=== PATIENT | female | born 1980 | race American Indian/Alaskan Native ===

== ENCOUNTER 2017-04-30 16:39 | Emergency (ER) | payer MEDICAID ==
[2017-04-30] MEDS ORDERED: VISTARIL PO ONE (17:32)
[2017-04-30 17:40] LABS: Amphetamine Screen,Urine PRESUMPTIVE NEGATIVE; Bacteria,Urine 1+ /HPF (Negative); Benzodiazepines Screen,Urine PRESUMPTIVE NEGATIVE; Bilirubin,Urine NEG (Negative); Cocaine Screen,Urine PRESUMPTIVE NEGATIVE; Color,Urine Yellow (Yellow); Methadone Screen,Urine PRESUMPTIVE NEGATIVE; Mucus,Urine FEW /HPF; Nitrite,Urine NEG (Negative); Opiate Screen,Urine PRESUMPTIVE NEGATIVE; Urobilinogen,Urine < 2.0 mg/dL (<2.0)
[2017-04-30 17:46] LABS: Blood,Urine Small (Negative)
[2017-04-30 17:53] LABS: Cannabinoid Screen,Urine PRESUMPTIVE POSITIVE
--- NOTE | 2017-04-30 18:45 | Emergency Department Report ---
ED Psych HPI - General Chief Complaint: Psych Stated Complaint: SUICIDAL THOUGHTS Time Seen by Provider: 04/30/17 17:22 Source: patient, EMS Mode of arrival: Ambulatory - History of Present Illness Initial Comments: 36 yo female with a past medical history depression, anxiety, and fibromyalgia presents to the Hospital complaining of depression and suicidal thoughts for the past 3 days. Suicidal thoughts increased today secondary to life stressors. Patient also states she is having increased anxiety episodes. She is compliant with her Lexapro and other unknown psychiatric medication. Patient has a plan to hang herself. When asked if she hears voices she states "I don't know". Patient expresses she is tired of living but knows she needs to be around for her 14-year-old son no physical complaints reported. Patient requesting medication for anxiety and sleep. - Related Data Home Medications Medication Instructions Recorded Confirmed Last Taken Escitalopram Oxalate [Lexapro] 20 mg PO BID 04/30/17 04/30/17 04/30/17 traMADol [Ultram] 50 mg PO Q4HR PRN 04/30/17 04/30/17 04/30/17 Allergies Allergy/AdvReac Type Severity Reaction Status Date / Time No Known Allergies Allergy Unverified 04/30/17 17:10 ED Review of Systems ROS: Stated complaint: SUICIDAL THOUGHTS Other details as noted in HPI Comment: All other systems reviewed and negative Other: Constitutional: No fevers chills Eyes: No eye pain visual changes ENT: No ear pain or throat pain Neck: Denies pain Respiratory: Denies cough wheezing shortness of breath Cardiovascular: Denies chest pain, palpitations, syncope GI: Denies abdominal pain, nausea, vomiting, diarrhea : Denies dysuria Musculoskeletal: Denies back pain, joint swelling Skin: Denies rash, lesions, erythema Neurologic: Denies headache, numbness, weakness Psychiatric: As per HPI ED Past Medical Hx - Past Medical History Hx Psychiatric Treatment: Yes (Depression/Anxiety) Additional medical history: Fibromyalgia - Surgical History Past Surgical History?: No - Social History Smoking Status: Never Smoker Substance Use Type: None - Medications Home Medications: Home Medications Medication Instructions Recorded Confirmed Last Taken Type Escitalopram Oxalate [Lexapro] 20 mg PO BID 04/30/17 04/30/17 04/30/17 History traMADol [Ultram] 50 mg PO Q4HR PRN 01/04/30/17 04/30/17 History ED Physical Exam - General Limitations: No Limitations - Other Other exam information: General: No limitations, patient is alert in no acute distress Head exam: Atraumatic, normocephalic Eyes exam: Normal appearance ENT: Moist mucous membrane, normal oropharynx Neck exam: Normal inspection, full range of motion, no meningismus nontender Respiratory exam: Clear to auscultation bilateral, no wheezes, rales, crackles Cardiovascular: Normal rate and rhythm, normal heart sounds Abdomen: Soft, nondistended, and nontender, with normal bowel sounds, no rebound, or guarding Extremity: Full range of motion normal inspection no deformity Back: Normal Inspection, full range of motion, no tenderness Neurologic: Alert, oriented x3, cranial nerves intact, no motor or sensory deficit Psychiatric: Depressed affect, poor eye contact Skin: Warm, dry, intact ED Course Vital Signs 04/30/17 17:01 Temperature 97.9 F Pulse Rate 84 Respiratory 18 Rate Blood Pressure 138/96 O2 Sat by Pulse 99 Oximetry - Consultations Consultation #1: 04/30/17 19:51 mental health consult ED Medical Decision Making - Lab Data Result diagrams: 04/30/17 18:40 04/30/17 18:40 Lab Results 04/30/17 04/30/17 04/30/17 Range/Units 17:05 17:05 18:40 WBC (4.5-11.0) K/mm3 RBC (3.65-5.03) M/mm3 Hgb (10.1-14.3) gm/dl Hct (30.3-42.9) % MCV (79-97) fl MCH (28-32) pg MCHC (30-34) % RDW (13.2-15.2) % Plt Count (140-440) K/mm3 Lymph % (Auto) (13.4-35.0) % [place] % (Auto) (0.0-7.3) % Eos % (Auto) (0.0-4.3) % Baso % (Auto) (0.0-1.8) % Lymph # (1.2-5.4) K/mm3 [place] # (0.0-0.8) K/mm3 Eos # (0.0-0.4) K/mm3 Baso # (0.0-0.1) K/mm3 Seg Neutrophils % (40.0-70.0) % Seg Neutrophils # (1.8-7.7) K/mm3 Sodium (137-145) mmol/L Potassium (3.6-5.0) mmol/L Chloride (98-107) mmol/L Carbon Dioxide (22-30) mmol/L Anion Gap mmol/L BUN (7-17) mg/dL Creatinine (0.7-1.2) mg/dL Estimated GFR ml/min BUN/Creatinine Ratio % Glucose (65-100) mg/dL Calcium (8.4-10.2) mg/dL HCG, Qual (Negative) Urine Color Yellow (Yellow) Urine Turbidity Clear (Clear) Urine pH 5.0 (5.0-7.0) Ur Specific [place] 1.043 H (1.003-1.030) Urine Protein 30 mg/dl (Negative) mg/dL Urine Glucose (UA) Neg (Negative) mg/dL Urine Ketones 20 (Negative) mg/dL Urine Blood Small A (Negative) Urine Nitrite Neg (Negative) Urine Bilirubin Neg (Negative) Urine Urobilinogen < 2.0 (<2.0) mg/dL Ur Leukocyte Esterase Neg (Negative) Urine WBC (Auto) 2.0 (0.0-6.0) /HPF Urine RBC (Auto) 21.0 (0.0-6.0) /HPF U Epithel Cells (Auto) 12.0 (0-13.0) /HPF Urine Bacteria (Auto) 1+ (Negative) /HPF Urine Mucus Few /HPF Salicylates < 0.3 L (2.8-20.0) mg/dL Urine Opiates Screen Presumptive negative Urine Methadone Screen Presumptive negative Acetaminophen (10.0-30.0) ug/mL Ur Barbiturates Screen Presumptive negative Ur Phencyclidine Scrn Presumptive negative Ur Amphetamines Screen Presumptive negative U Benzodiazepines Scrn Presumptive negative Urine Cocaine Screen Presumptive negative U Marijuana (THC) Screen Presumptive positive Drugs of Abuse Note Disclamer Plasma/Serum Alcohol (0-0.07) gm% 04/30/17 04/30/17 04/30/17 Range/Units 18:40 18:40 18:40 WBC (4.5-11.0) K/mm3 RBC (3.65-5.03) M/mm3 Hgb (10.1-14.3) gm/dl Hct (30.3-42.9) % MCV (79-97) fl MCH (28-32) pg MCHC (30-34) % RDW (13.2-15.2) % Plt Count (140-440) K/mm3 Lymph % (Auto) (13.4-35.0) % [place] % (Auto) (0.0-7.3) % Eos % (Auto) (0.0-4.3) % Baso % (Auto) (0.0-1.8) % Lymph # (1.2-5.4) K/mm3 [place] # (0.0-0.8) K/mm3 Eos # (0.0-0.4) K/mm3 Baso # (0.0-0.1) K/mm3 Seg Neutrophils % (40.0-70.0) % Seg Neutrophils # (1.8-7.7) K/mm3 Sodium 137 (137-145) mmol/L Potassium 3.6 (3.6-5.0) mmol/L Chloride 99.9 (98-107) mmol/L Carbon Dioxide 22 (22-30) mmol/L Anion Gap 19 mmol/L BUN 8 (7-17) mg/dL Creatinine 0.6 L (0.7-1.2) mg/dL Estimated GFR > 60 ml/min BUN/Creatinine Ratio 13 % Glucose 102 H (65-100) mg/dL Calcium 9.3 (8.4-10.2) mg/dL HCG, Qual (Negative) Urine Color (Yellow) Urine Turbidity (Clear) Urine pH (5.0-7.0) Ur Specific [place] (1.003-1.030) Urine Protein (Negative) mg/dL Urine Glucose (UA) (Negative) mg/dL Urine Ketones (Negative) mg/dL Urine Blood (Negative) Urine Nitrite (Negative) Urine Bilirubin (Negative) Urine Urobilinogen (<2.0) mg/dL Ur Leukocyte Esterase (Negative) Urine WBC (Auto) (0.0-6.0) /HPF Urine RBC (Auto) (0.0-6.0) /HPF U Epithel Cells (Auto) (0-13.0) /HPF Urine Bacteria (Auto) (Negative) /HPF Urine Mucus /HPF Salicylates (2.8-20.0) mg/dL Urine Opiates Screen Urine Methadone Screen Acetaminophen < 15.0 (10.0-30.0) ug/mL Ur Barbiturates Screen Ur Phencyclidine Scrn Ur Amphetamines Screen U Benzodiazepines Scrn Urine Cocaine Screen U Marijuana (THC) Screen Drugs of Abuse Note Plasma/Serum Alcohol < 0.01 (0-0.07) gm% 04/30/17 04/30/17 Range/Units 18:40 18:40 WBC 9.2 (4.5-11.0) K/mm3 RBC 4.55 (3.65-5.03) M/mm3 Hgb 12.5 (10.1-14.3) gm/dl Hct 37.6 (30.3-42.9) % MCV 83 (79-97) fl MCH 28 (28-32) pg MCHC 33 (30-34) % RDW 14.5 (13.2-15.2) % Plt Count 434 (140-440) K/mm3 Lymph % (Auto) 15.8 (13.4-35.0) % [place] % (Auto) 4.2 (0.0-7.3) % Eos % (Auto) 0.0 (0.0-4.3) % Baso % (Auto) 0.4 (0.0-1.8) % Lymph # 1.5 (1.2-5.4) K/mm3 [place] # 0.4 (0.0-0.8) K/mm3 Eos # 0.0 (0.0-0.4) K/mm3 Baso # 0.0 (0.0-0.1) K/mm3 Seg Neutrophils % 79.6 H (40.0-70.0) % Seg Neutrophils # 7.3 (1.8-7.7) K/mm3 Sodium (137-145) mmol/L Potassium (3.6-5.0) mmol/L Chloride (98-107) mmol/L Carbon Dioxide (22-30) mmol/L Anion Gap mmol/L BUN (7-17) mg/dL Creatinine (0.7-1.2) mg/dL Estimated GFR ml/min BUN/Creatinine Ratio % Glucose (65-100) mg/dL Calcium (8.4-10.2) mg/dL HCG, Qual Negative (Negative) Urine Color (Yellow) Urine Turbidity (Clear) Urine pH (5.0-7.0) Ur Specific [place] (1.003-1.030) Urine Protein (Negative) mg/dL Urine Glucose (UA) (Negative) mg/dL Urine Ketones (Negative) mg/dL Urine Blood (Negative) Urine Nitrite (Negative) Urine Bilirubin (Negative) Urine Urobilinogen (<2.0) mg/dL Ur Leukocyte Esterase (Negative) Urine WBC (Auto) (0.0-6.0) /HPF Urine RBC (Auto) (0.0-6.0) /HPF U Epithel Cells (Auto) (0-13.0) /HPF Urine Bacteria (Auto) (Negative) /HPF Urine Mucus /HPF Salicylates (2.8-20.0) mg/dL Urine Opiates Screen Urine Methadone Screen Acetaminophen (10.0-30.0) ug/mL Ur Barbiturates Screen Ur Phencyclidine Scrn Ur Amphetamines Screen U Benzodiazepines Scrn Urine Cocaine Screen U Marijuana (THC) Screen Drugs of Abuse Note Plasma/Serum Alcohol (0-0.07) gm% - Medical Decision Making Patient has suicidal thoughts 1013 and transfer forms signed Patient is unaware of her current medications for continuation in the ED Awaiting psychiatric consultation for placement and medication management Fibromyalgia Cause of chronic pain Motrin and tramadol ordered as needed - Differential Diagnosis suicidal, depression, psychosis Critical Care Time: No Critical care attestation.: If time is entered above; I have spent that time in minutes in the direct care of this critically ill patient, excluding procedure time. ED Disposition Clinical Impression: Depressed, Suicidal thoughts, Medical clearance for psychiatric admission, Fibromyalgia Disposition: [id number]/TX-[id number] PSY HOSP/PSY UNIT Is pt being admited?: No Condition: Stable Time of Disposition: 19:53 (awaiting acceptance)
[2017-04-30 18:58] LABS: Basophils % (Auto) 0.4 % (0.0-1.8); Hematocrit 37.6 % (30.3-42.9); Hemoglobin 12.5 gm/dl (10.1-14.3); Lymphocytes # (Auto) 1.5 K/mm3 (1.2-5.4); Lymphocytes % (Auto) 15.8 % (13.4-35.0); Mean Corpuscular HGB Conc 33 % (30-34); Mean Corpuscular Hemoglobin 28 pg (28-32); Mean Corpuscular Volume 83 fl (79-97); Monocytes # (Auto) 0.4 K/mm3 (0.0-0.8); Monocytes % (Auto) 4.2 % (0.0-7.3); Platelet Count 434 K/mm3 (140-440); Red Blood Count 4.55 M/mm3 (3.65-5.03); Red Cell Distribution Width 14.5 % (13.2-15.2)
[2017-04-30 19:20] LABS: BUN/Creatinine Ratio 13; Blood Urea Nitrogen 8 mg/dL (7-17); Calcium 9.3 mg/dL (8.4-10.2); Hemolysis Index 6
[2017-04-30] MEDS ORDERED: MOTRIN PO PRN (21:12)
[2017-04-30] MEDS: ULTRAM PO PRN (21:30)
[2017-05-01] MEDS ORDERED: TYLENOL PO PRN (00:24)
[2017-05-01] MEDS ORDERED: ALUM-MAG HYDROX-SIMETH 200-200-20MG/5ML PO PRN (00:24)
[2017-05-01] MEDS ORDERED: MILK OF MAGNESIA PO PRN (00:24)
[2017-05-01] MEDS: ULTRAM PO PRN ×2 (07:15→13:43)
[2017-05-01 09:39] VITALS: BP 125/75
--- NOTE | 2017-05-01 11:30 | Consultation ---
History of Present Illness - Reason for Consult Consult date: 05/01/17 Reason for consult: Mental Health Evaluation Requesting physician: FILEMON THOMAS - Chief Complaint Chief complaint: "I was stressed out" - History of Present Psychiatric Illness 36 yo female with a past medical history depression, anxiety, and fibromyalgia presents to the Hospital complaining of depression and suicidal thoughts for the past 3 days. Today the patient is calm and cooperative during the assessment. She stated that she has fibromyalgia and her pain can be so intense she can become "mentally unstable." She stated that she was unstable yesterday and wanted her life to be over. She admitted to being suicidal with a plan to hang herself. She stated experiencing the same type of episode in 2013. She stated that she was hospitalized in a mental facility in 2013 after her "breakdown." She feels that her pain isn't managed properly. Also, she stated that her life stressors exacerbate her depression. She would not elaborate more about the life stressors when asked. She was asked about being suicidal now, She stated, "I don't know." She denies HI's and AVH'. She denies sleep disturbance and a poor appetite. She denies manic episodes in the past. She admitted to smoking marijuana for "years, " but denies alcohol consumption (etoh ). Medications and Allergies Allergies Allergy/AdvReac Type Severity Reaction Status Date / Time No Known Allergies Allergy Unverified 04/30/17 17:10 Home Medications Medication Instructions Recorded Confirmed Last Taken Type Escitalopram Oxalate [Lexapro] 20 mg PO BID 04/30/17 04/30/17 04/30/17 History traMADol [Ultram] 50 mg PO Q4HR PRN 04/30/17 04/30/17 04/30/17 History Active Meds: Active Medications Acetaminophen (Tylenol) 650 mg PO Q4HR PRN PRN Reason: Pain MILD(1-3)/Fever >100.5/[place] Al Hydrox/Mg Hydrox/Simethicone (Alum-Mag Hydrox-Simeth [phone]/5ml) 30 ml PO Q4HR PRN PRN Reason: Indigestion Ibuprofen (Motrin) 800 mg PO TID PRN PRN Reason: Pain Magnesium Hydroxide (Milk Of Magnesia) 30 ml PO Q12HR PRN PRN Reason: Constipation Tramadol HCl (Ultram) 50 mg PO Q8HR PRN PRN Reason: Pain Last Admin: 05/01/17 07:15 Dose: 50 mg Past psychiatric history - Past Medical History Past Medical History: other (fibromyalgia) Past Surgical History: No surgical history - past Psychiatric treatment and history Psych: Depression psychiatric treatment history: Inpatient once for SI's. Denies a fam psy hx. - Social History Social history: lives with family Mental Status Exam - Vital signs Last Vital Signs Temp 98.5 F 05/01/17 09:22 Pulse 90 05/01/17 09:22 Resp 20 05/01/17 09:39 BP 125/75 05/01/17 09:22 Pulse Ox 100 05/01/17 09:39 - Exam Narrative exam: MSE: Appearance: calm, cooperative Behavior: good eye contact Speech: regular rate and tone Mood: "okay" Affect: congruent to mood Thought Process: circumstantial Thought Content: denies HI's and AVH's, intermittent SI's Motor Activity: lying in bed Cognition: A/O x 3 Insight: variable Judgment: variable Results Result Diagrams: 04/30/17 18:40 04/30/17 18:40 Abnormal lab results 04/30/17 04/30/17 04/30/17 Range/Units 17:05 18:40 18:40 Seg Neutrophils % (40.0-70.0) % Creatinine 0.6 L (0.7-1.2) mg/dL Glucose 102 H (65-100) mg/dL Ur Specific [place] 1.043 H (1.003-1.030) Urine Blood Small A (Negative) Salicylates < 0.3 L (2.8-20.0) mg/dL 04/30/17 Range/Units 18:40 Seg Neutrophils % 79.6 H (40.0-70.0) % Creatinine (0.7-1.2) mg/dL Glucose (65-100) mg/dL Ur Specific [place] (1.003-1.030) Urine Blood (Negative) Salicylates (2.8-20.0) mg/dL All other labs normal. Assessment and Plan Assessment and plan: Impression: MDD, Recurrent Servere Type. Substance Use DO 9marijuana). Today the patient is calm and cooperative during the assessment. She could not confirm or deny SI's. Patient positive for marijuana. DDx: R/O Bipolar DO, Somatic Symptom DO (Pain), R/O Substance Induced Mood DO Recommendation/Plan: Continue [address] [facility] today.
== END 2017-05-01 13:45 ==
LOC: ED 16:39
DX: F32.9 Major depressive disorder, single episode, unspecified (principal); F41.9 Anxiety disorder, unspecified; M79.7 Fibromyalgia
CPT/HCPCS: 36415; 80048; 80307; 81001; 84703; 85025; 99285; G0480; 80320; Q0177